=== PATIENT | female | born 1975 | race Caucasian/White ===

== ENCOUNTER 2018-09-09 07:44 | Inpatient (IN) ==
--- NOTE | 2018-09-09 08:02 | History & Physical Report ---
Date of Encounter: 09/09/18 Time of Encounter: 08:01 24 Hour HP Update - Instructions Instructions: If the History and Physical is less than 30 days old and was completed prior to A.M. admission and or procedure and has NOT been updated on calendar day of procedure please complete this update prior to performing procedure. - Update Patient reports changes in Medical Condition: No Changes in examination, assessment, or condition: No Changes in Medication: No Preop tests/diagnostics Reviewed: Yes Surgery Remains Indicated: Yes Consent for Planned Operative Procedure(s) Verified: Yes - Pre-Operative Checklist Preoperative Checklist Indicated: No Prophylactic Antibiotic Ordered: Yes Is VTE Prophylaxis Indicated?: Yes
[2018-09-09] MEDS ORDERED: Albuterol 2.5 MG/3 ML NEBULIZER IH ONE (08:06)
[2018-09-09] MEDS ORDERED: CeFAZolin Syr 2,000MG/20 ML 2,000 MG/20 ML SYRINGE IVPB ONE (08:06)
[2018-09-09] MEDS ORDERED: Albuterol 2.5 MG/3 ML NEBULIZER ONE (08:13)
[2018-09-09] MEDS ORDERED: Ringers Solution, Lactated 1,000 ML IVC SCH ×2 (08:15→12:16)
[2018-09-09] MEDS ORDERED: Lidocaine -MPF 2% 2 ML VIAL ONE (08:19)
[2018-09-09] MEDS ORDERED: *HR* Propofol 200 MG/20 ML VIAL IVP ONE (08:19)
[2018-09-09] MEDS ORDERED: *HR* FentaNYL (PF) 100 MCG/2 ML VIAL ONE (08:19)
[2018-09-09] MEDS ORDERED: *HR* Midazolam HCl 2 MG/2 ML VIAL ONE (08:19)
[2018-09-09] MEDS ORDERED: Dexamethasone 4 MG/ML VIAL ONE ×2 (08:21→10:15)
--- NOTE | 2018-09-09 08:47 | Anesthesia Evaluation PreOp ---
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 (migraines, herniated discs (no neurological symptoms today)) Other Medical History: Thyroid (hypothyroidism), GERD, Other (BMI 40) Anesthesia History: No Prior Anesthetic Complications Alcohol Use: none Drug use: none Medications and Allergies Levothyroxine [Synthroid] 150 mcg PO DAILY 09/09/18 [History] Omeprazole [PriLOSEC] 20 mg PO DAILY 09/09/18 [History] Polyethylene Glycol 3350 [MiraLAX] 17 gm PO DAILY 09/09/18 [History] SUMAtriptan Succinate [Imitrex] 100 mg PO AD PRN 09/09/18 [History] Sertraline [Zoloft] 50 mg PO DAILY 09/09/18 [History] Allergy/AdvReac Type Severity Reaction Status Date / Time No Known Allergies Allergy Verified 09/09/18 08:31 - Meds/Allergy Pre-op Review Medications Reviewed: Yes Allergies Reviewed: Yes Beta Blockers on Current Med List: No Anesthesia Results - Imaging EKG: report reviewed, image reviewed (SR) Additional studies: MRI Lumbar spine: FINDINGS: BONES/ALIGNMENT: There is normal alignment of the spine. The vertebral body heights are maintained. The bone marrow signal appears unremarkable. SPINAL CORD: The conus terminates normally. SOFT TISSUES: No paraspinal mass identified. L1-L2: There is no significant disc herniation, spinal canal stenosis or neural foraminal narrowing. L2-L3: There is no significant disc herniation, spinal canal stenosis or neural foraminal narrowing. L3-L4: There is no significant disc herniation, spinal canal stenosis or neural foraminal narrowing. L4-L5: There is no significant disc herniation, spinal canal stenosis or neural foraminal narrowing. L5-S1: There is no significant disc herniation, spinal canal stenosis or neural foraminal narrowing. MR/MR lumbar spine wo con IMPRESSION: Unremarkable lumbar spine MRI. Anesthesia Exam Last Vital Signs Temp 97.5 F L 09/09/18 08:00 Pulse 88 09/09/18 08:00 Resp 18 09/09/18 08:26 BP 113/72 09/09/18 08:26 Pulse Ox 95 09/09/18 08:26 Weight: 104 kg NPO (# of Hours): > 8 hrs - HEENT Pupil (Motor): Pupils equal, EOMI Mallampati: III Teeth: Edentulous Oral Opening: Greater than 3 - PHOTOGRAPHIC ENGINEER LOC: Oriented - Cardiac Rhythm: Regular Murmur: None - Pulmonary Breath Sounds: bilateral Clear Respiratory Effort: Symmetrical Anesthesia Assess/Plan ASA Score: 3 Level of consciousness: Cooperative Anesthetic Plan: MAC, Spinal (with duramorph) Monitoring Plan: Standard Monitors Recovery Plan: PACU
[2018-09-09] MEDS ORDERED: *HR* Promethazine 25 MG/ML VIAL IVP PRN (08:48)
[2018-09-09] MEDS ORDERED: *HR* OxyCODONE Immed Rel 5 MG TABLET PO PRN (08:48)
[2018-09-09] MEDS ORDERED: *HR* HYDROmorphone (PF) 1 MG/ML SYRINGE IVP PRN (08:48)
[2018-09-09] MEDS ORDERED: Ethanol\\Acetic Acid\\Na Ace\\Ben 1,000 ML IRRIG.SOLN IR ONE (09:07)
[2018-09-09] MEDS ORDERED: ROPIVACAINE HCL/PF 0.5% 30 ML VIAL ONE (09:14)
--- NOTE | 2018-09-09 09:14 | Discharge Summary ---
Orders not resulted at time of discharge: Pending orders 09/09/18 01:00 XR knee LT 1-2V [XR] Routine Hemoglobin and Hematocrit [HEME] Routine Date of Encounter: 09/10/18 Time of Encounter: 11:51 - Discharge Diagnosis (1) Osteoarthritis of left knee Priority: Primary Status: Chronic Qualifiers: Osteoarthritis type: unspecified Qualified Code(s): M17.12 - Unilateral primary osteoarthritis, left knee (2) Status post total left knee replacement Priority: Primary Status: Acute (3) COPD (chronic obstructive pulmonary disease) Priority: Secondary Status: Chronic Qualifiers: COPD type: unspecified COPD Qualified Code(s): J44.9 - Chronic obstructive pulmonary disease, unspecified (4) GERD (gastroesophageal reflux disease) Priority: Secondary Status: Chronic Qualifiers: Esophagitis presence: esophagitis presence not specified Qualified Code(s): K21.9 - Gastro-esophageal reflux disease without esophagitis (5) IBS (irritable bowel syndrome) Priority: Secondary Status: Chronic Qualifiers: Irritable bowel syndrome type: unspecified Qualified Code(s): K58.9 - Irritable bowel syndrome without diarrhea (6) Hypothyroidism Priority: Secondary Status: Chronic Qualifiers: Hypothyroidism type: unspecified Qualified Code(s): E03.9 - Hypothyroidism, unspecified (7) Migraines Priority: Secondary Status: Chronic Qualifiers: Migraine type: unspecified Status migrainosus presence: without status migrainosus Intractability: not intractable Qualified Code(s): G43.909 - Migraine, unspecified, not intractable, without status migrainosus (8) Nicotine dependence Priority: Secondary Status: Chronic Qualifiers: Nicotine product type: other Substance use status: uncomplicated Qualified Code(s): F17.290 - Nicotine dependence, other tobacco product, uncomplicated (9) Obesity Priority: Secondary Status: Chronic Qualifiers: Obesity type: unspecified obesity type Obesity classification: adult class 2 (BMI 35 - 39.9) Serious obesity comorbidity presence: unspecified whether serious comorbidity present Body mass index: BMI 39.0-39.9 Qualified Code(s): E66.9 - Obesity, unspecified; Z68.39 - Body mass index (BMI) 39.0-39.9, adult (10) History of cervical cancer Priority: Secondary Status: Chronic - Hospital Course Hospital course: Ms. Chow is a 43 year old female POD#1 Date of procedure: 09/09/18 Pre-op diagnosis: Left knee arthritis Post-op diagnosis: same Procedure: Procedure: Left robotic-assisted Total knee replacement Patient states doing well - having some residual numbness from surgery and some thigh cramping, however states manageable and planning to go home this evening. Denies any inability to use leg - states participated with therapy and doing well. Patient alert and oriented x 3 No swelling noted to b/l LE No calf tenderness erythema warmth Incision c/d/i Neurovascularly intact b/l LE Patient got script for BSC Patient set up for HH - continuity completed Patient states pain control adequate Patient to discharge home with HH today and keep outpatient follow up as scheduled Vital Signs Temp Pulse Resp BP Pulse Ox 09/10/18 15:19 97.9 F 79 16 146/77 97 09/10/18 11:56 98.2 F 79 17 123/75 99 09/10/18 04:51 98.4 F 98 16 109/62 93 09/09/18 23:04 98.6 F 91 17 120/72 97 09/09/18 18:43 98.1 F 98 17 113/73 96 Intake and Output 09/10/18 09/10/18 09/10/18 07:59 15:59 23:59 Intake Total 500 / 500 Balance 500 / 500 Intake: IV Fluids 100 / 100 Ofirmev 1,000 mg/100 ml 1,000 100 / 100 mg In 100 ml @ 400 mls/hr IVPB Q6HR PRN Rx#:[id number] Oral 400 / 400 Other: Weight 104.327 kg Patient Weight 09/10/18 23:59 Weight 104.327 kg Short CBC 09/10/18 Range/Units 05:54 Hgb 9.4 L (11.5-15.4) g/dL Hct 28.7 L (35.3-44.9) % BMP 09/10/18 Range/Units 05:54 Sodium 134 L (136-145) mEq/L Potassium 4.0 (3.5-5.1) mEq/L Chloride 104 (98-107) mEq/L Carbon Dioxide 22 L (23-29) mEq/L BUN 15 (6-20) mg/dL Creatinine 0.74 (0.60-1.20) mg/dL Glucose 189 H (70-105) mg/dL Calcium 8.5 L (8.6-10.3) mg/dL - Time Spent with Patient Total time spent providing and/or coordinating discharge services: - Discharge Medications Home Medications: Aspirin Enteric Coated [Aspirin EC] 325 mg PO BID 10 Days #20 tablet.dr 09/09/18 [Rx] Docusate Sodium [Colace] 100 mg PO BID 5 Days #10 capsule 09/09/18 [Rx] Levothyroxine [Synthroid] 150 mcg PO DAILY 09/09/18 [History] Omeprazole [PriLOSEC] 20 mg PO DAILY 09/09/18 [History] OxyCODONE Immed Rel [Roxicodone 5 MG] 5 mg PO Q6HR PRN 7 Days #28 tablet 09/09/18 [Rx] Polyethylene Glycol 3350 [MiraLAX] 17 gm PO DAILY 09/09/18 [History] SUMAtriptan Succinate [Imitrex] 100 mg PO AD PRN 09/09/18 [History] Sertraline [Zoloft] 50 mg PO DAILY 09/09/18 [History] Allergies/Adverse Reactions: Allergy/AdvReac Type Severity Reaction Status Date / Time No Known Allergies Allergy Verified 09/09/18 08:31 Date of admission: 09/09/18 Primary care physician: Annamaria Rodrigez MD Discharging clinician: Harmeet Joseph - Patient Status Disposition: Home Health Service Condition: Good Functional capacity at discharge: uses cane/walker Overall status at discharge: patient is progressing back to baseline - Discharge Instructions Follow Up With: Annamaria Rodrigez MD [Primary Care Provider] - Additional Instructions: Discharge Instructions: Total Knee Replacement Please call [facility] ([phone]), your Primary Care Physician, or report to the Emergency Room if you have any of the following symptoms: Nausea, vomiting, fever greater that 101.5, swelling, chest pain, shortness of breath, increased pain/redness/drainage/odor for your incision site, numbness/tingling, or any other concerning symptoms. ACTIVITY:Weight-bearing as tolerated. You may progress off support (crutches or walker) as tolerated. Incentive Spirometer 10 times an hour. MEDICATIONS: Upon discharge resume your home medications. Take all the medications as prescribed. Take a stool softener if taking narcotic pain medications. Stool softeners are only effective if you drink enough fluids. Drink 6-8 glass of water or fluids a day, unless this is not allowed for another health problem. Despite using stool softeners, if you haven't had a bowel movement in 3 days, please switch to a gentle laxative. Gentle laxatives are sold over the counter. You should have a bowel movement within 24 hours, if not call the office. You will be discharged from the hospital with a prescription for pain medication. You are encouraged to decrease the use of narcotic pain medication as tolerated. Should you require a refill, please call the office. [facility] prescribes narcotic pain medication for only 4-6 weeks after surgery. If you require pain medication beyond this time period, you may be referred to your Primary Care Physician or to the Pain Clinic for further evaluation. Plan ahead for refills on pain medication as many narcotics either need to be picked up at the office or mailed. It is best to call 48-72 hours in advance of needing a prescription refill so you don't run out of medication. To help control the post-operative pain, you may take NSAIDs (Aleve,Advil, Motrin, Ibuprofen, Naprosyn) or Tylenol as prescribed on the bottle in addition to the pain medication. ANTICOAGULATION (blood thinners): Continue your Aspirin, Lovenox or Coumadin as prescribed to help prevent a blood clot in the leg or in the lungs. As long as your incision remains dry and you tolerate the NSAIDs (Aleve, Advil, Motrin, ibuprofen, naprosyn), it is OK to use the NSAIDS while you are taking your anticoagulation medication. Should your incision start to drain, stop the NSAID and contact our office. Common symptoms of blood clot in the legs include: localized pain, swelling, calf tenderness, redness or discoloration of the skin. Blood clot in the lung symptoms include: shortness of breath, rapid pulse, sweating, and chest pain that worsens with deep breathing, coughing up blood, lightheadedness, feelings of anxiety. If you experience any of these symptoms notify your physician immediately, go to the emergency room, or if having trouble breathing, call 911. WOUND CARE: Leave the dressing on for 7 to 10days. You may change the dressing if it becomes saturated greater than 50%. Do not get the dressing wet at any time. Wash your hands with antibacterial soap, rinse and dry prior to any wound care. If you have jossy the visiting nurse or rehab facility can remove the stapes 10-14 days after surgery and place steri-strips across the wound. Leave the steri-strips in place until they fall off on their won. You may let water from the shower run on top of the steri-strips. If you do not have a visiting nurse or rehab facility, you will need to return to the office at 10-14 days for the jossy to be removed. If you have itching or redness around the dressing call the office. FOLLOW-UP: Please follow up with your surgeon in the orthopedic clinic in 4 weeks from the day of surgery. If you have jossy that need to be removed, you will need to come back to the office in 10-14 days from the day of surgery. - Diet and Activity Diet: advance to your usual diet
[2018-09-09] MEDS ORDERED: *HR* Morphine Sulfate/PF 10 MG/10 ML AMPUL ONE (09:15)
[2018-09-09] MEDS ORDERED: Bupivacaine/Clonidine Syringe 1 EACH SYRINGE ONE (09:15)
[2018-09-09] MEDS ORDERED: Propofol 500 MG/50 ML INFUS..BTL ONE (09:20)
[2018-09-09] MEDS ORDERED: Lidocaine 1% 20 ML MDV ONE (09:25)
[2018-09-09] MEDS ORDERED: Tranexamic Acid 1,000 MG/10 ML VIAL ONE (09:31)
[2018-09-09] MEDS ORDERED: *HR* PHENYLEPHRINE 1,000 MCG/10 ML SYRINGE IVP ONE (09:42)
--- NOTE | 2018-09-09 09:55 | Anesthesia Procedures ---
Date of Encounter: 09/09/18 Time of Encounter: 09:40 Procedures: Anesthesia - Epidural/Spinal Patient ID/Chart reviewed: Yes Patient examined: Yes Supplemental Oxygen Rate (L/min): 2 Sedation: Versed (mg): 2 Sedation: Fentanyl (mcg): 100 Site Prep: Aseptic Technique Patient position: upright Local Anesthetic: Lidocaine 1% Amount of Local Anesthetic used: 3 Loss of Resistance (GERBER): Yes Blood: No CSF: Yes Paresthesia: No Spinal Needle Gauge: 25 (pencan) Spinal Dose: 2.8cc 0.5% bupivicaine plain with 0.2mg duramorph Procedure: L2-3 aseptically x 1 attempt. Clear csf thru 25g pencan, no parasthesias, no heme.
--- NOTE | 2018-09-09 09:58 | Anesthesia Procedures ---
Date of Encounter: 09/09/18 Time of Encounter: 09:40 Procedures: Anesthesia - Nerve Block Procedure Date: 09/09/18 Time: 09:40 Allergies/Adv Reactions: No Known Allergies Allergy (Verified 09/09/18 08:31) Pre-op Diagnosis: oa left knee Surgical Procedure: left total knee Checklist: Correct Patient Identifier, Correct procedure, History checked Correct side: Left Blood Thinner: No Monitor Applied: EKG, BP, Pulse Oximetry Supplemental Oxygen via Nasal Cannula (L/min): 2 Indication: Post Op Analgesia Pre-op Neuro Deficits: No Block Type: Other (adductor canal 30cc 0.5 ropi, ipack 20cc 0.25% bupi) Catheter placed: No Sterile Technique: Yes Ultrasound used: Yes Anatomy identified: Yes Visual spread of Local: Yes Neuro Stimulation: No Blood on Needle Aspiration: No Smooth Injection of Local: Yes Pain with Injection of Local: No Prep: Chlorhexadine Needle: 21 x 100 mm Stimuplex Local: 0.25% Bupivicaine w/Clonidine 20 mcg/cc, Ropivacaine Volume (cc): 50 Number of Attempts: 1 Complications: None/effective block
[2018-09-09] MEDS ORDERED: EPHEDrine 50 MG/ML VIAL ONE (10:12)
[2018-09-09] MEDS ORDERED: Ondansetron 4 MG/2 ML VIAL ONE (10:15)
--- NOTE | 2018-09-09 10:44 | Orthopedic Operative Note ---
Date of procedure: 09/09/18 Pre-op diagnosis: Left knee arthritis Post-op diagnosis: same Procedure: Procedure: Left robotic-assisted Total knee replacement Estimated blood loss:400 cc Hardware: Metal and polyethylene replacement. Press-fit Juwan Femur: 3 Tibia: 3 PS insert: 11 Patella: 36 Exam Under anesthesia: 1 degree hyperextension 4 degree varus as calculated by the robot full flexion and no instability Procedural Notes: Grade 3 arthritic changes all 3 compartments. Operative procedure: The patient was brought to the operating room and placed on the operating room table. After general anesthesia was administered the operative knee was examined. Findings were noted in the exam under anesthesia. The operative extremity was prepped and draped in sterile surgical fashion. The patient received IV antibiotics prior to skin incision. A standard midline incision was made centered over the patella. The incision was made through the skin and subcutaneous tissue. A medial parapatellar tendon approach was performed. Care was taken to preserve tissue along the medial aspect of the patella. And to protect the patella tendon. The deep MCL was released off the medial tibia. The infra patella fat pad was excised. The patella was everted and cut was made at the level of the insertion of the quadriceps and patella tendon. The patella was sized the guide was seated and the lug holes are drilled. Knee was brought into flexion. Patient noted to have grade 3 arthritic changes all 3 compartments. Steinmann pins were placed in the tibia and the femur for the tibial and femoral arrays respectively. Checkpoints were also placed in the tibia and the femur for calculation purposes. The knee including the femur and the tibial registered. Osteophytes, ACL and PCL were excised at this point. Extension and flexion were assessed with a valgus stress components were adjusted on the computer to balance the knee. Femoral cuts were made first with robotic assistance, these included the anterior cut posterior cuts chamfer cuts. Tibial cut was then performed with robotic assistance as well. Bone fragments were removed, as well as the medial and lateral meniscus. The size 3 femoral guide was seated box cut was made lug holes are drilled. The size 3 tibial tray was seated and prepared with the fin cutter. Trial reduction with the 11 PS Yvonne revealed extension of 0 degree and 2 degree varus full flexion. No varus valgus instability. Trial reduction revealed excellent patella tracking. All trial components were removed all bony surfaces were irrigated. The Tibia was seated followed by the femur, The selected Yvonne size was seated and secured patella. Patient had similar findings for motion and stability. The knee was closed by the PA. The knee was then irrigated out with 2 L of pulse irrigation. The extensor mechanism was closed with #2 FiberWire suture and #2 PDS suture. The subcutaneous tissue was then irrigated and closed deep with #1 PDS suture superficially with 0 PDS suture and skin was closed with zip tie The patient was then placed in a sterile dressing and a postoperative brace extubated and transferred to recovery room in stable condition. Anesthesia: spinal Surgeon: Harmeet Joseph Was there an bindery library technical assistant present: No Estimated blood loss (cc): 400 Condition: stable Disposition: PACU
[2018-09-09 11:51] LABS: Hematocrit 33.4 % (35.3-44.9); Hemoglobin 10.7 g/dL (11.5-15.4)
--- NOTE | 2018-09-09 11:53 | Anesthesia Evaluation Post Op ---
Date of Encounter: 09/09/18 Time of Encounter: 11:52 - Vital Signs Vital Signs: Vital Signs/O2 Sat/Glucose, Most Recent Temp Pulse Resp BP Pulse Ox 97.6 F 82 16 86/56 94 09/09/18 11:48 09/09/18 11:48 09/09/18 11:48 09/09/18 11:48 09/09/18 11:48 - Airway Airway: Non-obstructed - Cardiovascular Regular Rate - Mental Status Mental Status: Alert & Oriented, Answers Appropriately - Pain Pain Scale: 0 Pain Scale used: Numeric (1 - 10) - Nausea Vomiting Nausea Vomiting: Not Present - Hydration Hydration: Ice chips, Has not voided Notes: 09/09/18 11:52 Pt has fully recovered from anesthetic. VSS. Neuro exam intact. - Discharge PostOp Status: Transfer Patient to floor
[2018-09-09] MEDS ORDERED: MOM Conc 10 ML UD.LIQ PO PRN (12:16)
[2018-09-09] MEDS ORDERED: Ondansetron 4 MG/2 ML VIAL IVP PRN (12:16)
[2018-09-09] MEDS ORDERED: Naloxone 0.4 MG/ML INJ IVP PRN (12:16)
[2018-09-09] MEDS ORDERED: *HR* OxyCODONE/APAP 5/325 TABLET PO PRN (12:16)
[2018-09-09] MEDS ORDERED: SUMAtriptan succinate 50 MG TABLET PO PRN (12:16)
[2018-09-09] MEDS ORDERED: traMADol 50 MG TABLET PO PRN (12:16)
[2018-09-09] MEDS ORDERED: Sennosides 8.6 MG TABLET PO PRN (12:16)
[2018-09-09] MEDS: *HR* Enoxaparin 30 MG/0.3 ML SYRINGE SQ SCH (18:28)
[2018-09-09] MEDS: *HR* OxyCODONE Immed Rel 5 MG TABLET PO PRN (18:34)
[2018-09-09] MEDS ORDERED: Acetaminophen IV 1,000 MG/100 ML INFUS..BTL IVPB PRN (19:58)
[2018-09-09] MEDS: Ibuprofen 600 MG TABLET PO PRN (20:14)
[2018-09-09] MEDS ORDERED: Temazepam 15 MG CAPSULE PO PRN (21:00)
[2018-09-10] MEDS: *HR* OxyCODONE Immed Rel 5 MG TABLET PO PRN ×3 (02:54→15:07)
[2018-09-10] MEDS: *HR* Enoxaparin 30 MG/0.3 ML SYRINGE SQ SCH (05:36)
[2018-09-10] MEDS: Ibuprofen 600 MG TABLET PO PRN (05:39)
[2018-09-10 06:22] LABS: Hematocrit 28.7 % (35.3-44.9); Hemoglobin 9.4 g/dL (11.5-15.4)
--- NOTE | 2018-09-10 06:36 | Orthopedics Progress Note ---
Date of Encounter: 09/10/18 Time of Encounter: 06:36 Subjective Interval history: Patient was seen this morning doing well without complaints. Afebrile vital signs stable. Operative extremity: Neurovascularly intact Dressing clean dry and intact Calves nontender Assessment and plan: Continue with postoperative care Hemoglobin 9.4 plan for discharge today Objective Vital signs: Vital Signs Temp Pulse Resp BP Pulse Ox 09/10/18 04:51 98.4 F 98 16 109/62 93 09/09/18 23:04 98.6 F 91 17 120/72 97 09/09/18 18:43 98.1 F 98 17 113/73 96 09/09/18 13:01 86 16 100/67 97 09/09/18 12:27 98.4 F 85 18 96/62 96 09/09/18 11:58 97.6 F 85 16 90/61 95 09/09/18 11:48 97.6 F 82 16 86/56 94 09/09/18 11:38 97.6 F 85 16 93/61 95 09/09/18 11:28 97.6 F 87 16 89/62 96 09/09/18 11:18 97.3 F L 85 16 98/61 94 09/09/18 08:26 18 113/72 95 09/09/18 08:00 97.5 F L 88 18 113/72 95 Intake and Output 09/09/18 09/09/18 09/10/18 15:59 23:59 07:59 Intake Total 1000 / 1000 100 / 100 500 / 500 Output Total 400 / 400 200 / 200 Balance 600 / 600 -100 / -100 500 / 500 Intake: IV Fluids 1000 / 1000 100 / 100 100 / 100 Lactated Ringers 1,000 ML @ 25 1000 / 1000 mls/hr IVC .Q24H HASMUKH Rx#: [id number] Ofirmev 1,000 mg/100 ml 1,000 100 / 100 mg In 100 ml @ 400 mls/hr IVPB Q6HR PRN Rx#:[id number] Ancef 2,000 MG In 0.9 % Sodium 100 / 100 Chloride 100 ML @ 200 mls/hr IVPB Q8HR HASMUKH Rx#:[id number] Oral 400 / 400 Output: Urine 200 / 200 Estimated Blood Loss 400 / 400 Other: Weight 104.326 kg 104.327 kg Patient Weight 09/10/18 23:59 Weight 104.327 kg - Labs CBC & BMP: 09/10/18 05:54 Labs: Abnormal lab results Hgb 9.4 g/dL (11.5-15.4) L 09/10/18 05:54 Hct 28.7 % (35.3-44.9) L 09/10/18 05:54 Consult Discharge Plan - Plan Referrals: Annamaria Rodrigez MD [Primary Care Provider] -
[2018-09-10 06:45] LABS: BUN/Creatinine Ratio 20 (6-26); Blood Urea Nitrogen 15 mg/dL (6-20); Calcium 8.5 mg/dL (8.6-10.3); Carbon Dioxide 22 mEq/L (23-29); Chloride 104 mEq/L (98-107); Glucose 189 mg/dL (70-105); Osmolality,Calculated 284 (280-300); Sodium 134 mEq/L (136-145); eGFR For Non-African Americans > 60 (> 60)
--- NOTE | 2018-09-10 11:51 | Event Note ---
Date of Encounter: 09/10/18 Time of Encounter: 11:51
[2018-09-10 15:20] VITALS: BP 146/77
--- NOTE | 2018-09-10 16:19 | Physician Discharge Referral ---
Home Health/Hosp Referral Info Transfer to: Home Health Attending Provider: Dr. Harmeet Joseph - Diagnosis (1) Osteoarthritis of left knee Priority: Primary Status: Chronic (2) Status post total left knee replacement Priority: Primary Status: Acute (3) COPD (chronic obstructive pulmonary disease) Priority: Secondary Status: Chronic (4) GERD (gastroesophageal reflux disease) Priority: Secondary Status: Chronic (5) IBS (irritable bowel syndrome) Priority: Secondary Status: Chronic (6) Hypothyroidism Priority: Secondary Status: Chronic (7) Migraines Priority: Secondary Status: Chronic (8) Nicotine dependence Priority: Secondary Status: Chronic (9) Obesity Priority: Secondary Status: Chronic (10) History of cervical cancer Priority: Secondary Status: Chronic - Respiratory Orders Smoking Cessation: Smoking cessation has been advised. For more information, call the [employer] Tobacco Quit Line at 4-596-VOTP-NOW. - Dressing/Wound Care Site: left knee Type of Dressing/Treatments w/Frequency: Opsite placed. Keep dressing intact until first follow up appointment. If greater than 50% saturated, notify office, remove dressing and place appropriate dressing back in place. Leave Zipline intact. Opsite dressing is water resistant, not water-proof. OK to shower, but do not get dressing wet. - Diet/Nutrition Diet/Nutrition Orders: Regular - Activity Activity Orders: Up ad dory, Ambulate, Chair, Walker Activity: List: Total Knee replacement Precautions x 6 weeks Apply cold therapy wrap 3-6x/day for 20 minutes at a time. Encourage ambulation throughout the day and incentive spirometer 10x/hour. Elevate affected extremity above heart as tolerated. Brace: Wear knee immobilizer at night x 2 weeks. - Services Needed Following services are medically necessary services: Nursing, Home Health Aide, Physical Therapy, Occupational Therapy - Transfer Medications Home Medications: Aspirin Enteric Coated [Aspirin EC] 325 mg PO BID 10 Days #20 tablet. 09/09/18 [Rx] Docusate Sodium [Colace] 100 mg PO BID 5 Days #10 capsule 09/09/18 [Rx] Levothyroxine [Synthroid] 150 mcg PO DAILY 09/09/18 [History] Omeprazole [PriLOSEC] 20 mg PO DAILY 09/09/18 [History] OxyCODONE Immed Rel [Roxicodone 5 MG] 5 mg PO Q6HR PRN 7 Days #28 tablet 09/09/18 [Rx] Polyethylene Glycol 3350 [MiraLAX] 17 gm PO DAILY 09/09/18 [History] SUMAtriptan Succinate [Imitrex] 100 mg PO AD PRN 09/09/18 [History] Sertraline [Zoloft] 50 mg PO DAILY 09/09/18 [History] Allergies/Adverse Reactions: Allergy/AdvReac Type Severity Reaction Status Date / Time No Known Allergies Allergy Verified 09/09/18 08:31 Certification: Further, I certify that my clinical findings support that this patient is homebound (i.e. absences from home require considerable and taxing effort and are for medical reasons or jainism services or infrequently or short duration when for other reasons) because: Homebound Reason: Post-surgery restriction and or conditions limit ability to leave home Attestation: My signature below is to certify that this patient is under my care and that I, or nurse practitioner, or a physician litigation legal assistant working with me, has a [id number] encounter with this patient.
== END 2018-09-10 17:50 | disposition home health service (06) | DRG 302 ==
LOC: SAMDAY 07:44 → 3NENU 12:06
PROVIDERS: ADMIT Orthopaedic Surgery; ATTEND Orthopaedic Surgery